=== PATIENT | male | born 1975 | race Caucasian/White ===

== ENCOUNTER 2024-03-24 14:39 | Emergency (ER) | payer OTHER, BC ==
[~2024-03-24] VITALS: Ht 185.4 cm; Wt 86.2 kg
[2024-03-24 14:51] VITALS: BP_SYST 127; PULSE 101; RESP 17; TEMP 96.9; O2SAT 96
[2024-03-24] MEDS: IBUPROFEN 800 MG TABLET PO ONE (15:29)
[2024-03-24 17:35] VITALS: BP_SYST 127; PULSE 101; RESP 17; TEMP 96.9; O2SAT 96
== END 2024-03-24 17:35 | disposition home or self-care (01) ==
LOC: SED 14:39
DX: S30.0XXA Contusion of lower back and pelvis, initial encounter (principal); V89.2XXA Person injured in unspecified motor-vehicle accident, traffic, initial encounter; Y93.89 Activity, other specified; Y92.89 Other specified places as the place of occurrence of the external cause; Y99.8 Other external cause status
CPT/HCPCS: 72100; 99283